=== PATIENT | female | born 1975 | race Caucasian/White ===

== ENCOUNTER → 2020-11-22 15:19 | Outpatient (BNVA) | payer BC, SELFPAY | PROVIDERS: PCP Family Medicine; Visit Provider Family Medicine | DX: Z01.419 Encounter for gynecological examination (general) (routine) without abnormal findings (principal); Z12.31 Encounter for screening mammogram for malignant neoplasm of breast; Z13.6 Encounter for screening for cardiovascular disorders; R53.83 Other fatigue | CPT/HCPCS: 88175 ==

== ENCOUNTER → 2021-06-10 08:37 | Outpatient (BNVA) | payer BC, SELFPAY | PROVIDERS: PCP Family Medicine; Visit Provider Family Medicine | DX: Z00.00 Encounter for general adult medical examination without abnormal findings (principal); Z13.6 Encounter for screening for cardiovascular disorders; F17.219 Nicotine dependence, cigarettes, with unspecified nicotine-induced disorders | CPT/HCPCS: 80053; 80061; 85025 ==

== ENCOUNTER 2024-06-22 10:36 | Emergency (ER) | payer OTHER, SELFPAY ==
[2024-06-22 10:46] VITALS: BP 101/71; PULSE 63; RESP 16; TEMP 36.2; O2SAT 100; BMI 21.2
--- NOTE | 2024-06-22 11:12 | XRR_ITS ---
PROCEDURE INFORMATION: Exam: XR Lumbosacral Spine Exam date and time: 06/22/2024 12:50 PM Age: 49 years old Clinical indication: Low back pain; Patient HX: Lower back pain post pulling incident today TECHNIQUE: Imaging protocol: Radiologic exam of the lumbosacral spine. Views: 2 or 3 views. COMPARISON: No relevant prior studies available. FINDINGS: Bones/joints: No acute fracture. Normal alignment. Vertebral body heights are maintained. There is disc space narrowing with moderate degenerative changes at L5-S1. Soft tissues: Unremarkable. XR/XR lumbar spine 2-3V* [id number] IMPRESSION: No acute findings.
--- NOTE | 2024-06-22 14:38 | W.ED.BACK ---
HPI - Back Pain/Injury General: Chief Complaint: Back Pain/Injury Stated Complaint: lower back pain Time Seen by Provider: 06/22/24 14:20 History of Present Illness: 49-year-old female comes in today for complaints of low back pain. On exam patient appears nontoxic. Patient appears in no acute distress. Patient reports that she was at work this morning and was moving some miguelina and felt a strain in her back. Patient had increasing pain and discomfort throughout the day. Patient believes that she needs to be off work tomorrow to recover. Patient denies any chronic medical problems. Patient reports only occasional back discomfort. Related Data Previous Rx's Medication Instructions Recorded sulfamethoxazole 800 1 tab PO BID 7 days #14 tabs 12/24/23 mg-trimethoprim 160 mg tablet (Bactrim DS) Allergies Allergy/AdvReac Type Severity Reaction Status Date / Time Penicillins Allergy hives Verified 12/24/23 14:07 Review of Systems General: Reports: 10 or more systems reviewed and unremarkable except in HPI and below Musc: Reports: back pain PFSH ED PFSH: Medical History No pertinent past medical history Surgical History H/O tubal ligation Family History Other Cancer Diabetes Social History Smoking and tobacco/nicotine status: unknown if used tobacco/nicotine Second hand smoke exposure: Yes Alcohol intake: never Substance/Drug Use: never Physical Exam Const: COMMON NORMALS: alert HENMT: COMMON NORMALS: normocephalic HEAD & SCALP: normocephalic Neck/C-Spine: COMMON NORMALS: full ROM Resp: COMMON NORMALS: normal respiratory effort Cardio: COMMON NORMALS: regular rate RATE: regular rate Back/Pelvis: LUMBAR SPINE/LOWER BACK: Yes lumbar spinal tenderness Lumbar spinal tenderness location: L5 and Yes paraspinal muscle tenderness Extremity: COMMON NORMALS: normal to inspection Neuro: SENSORIUM/ORIENTATION: Yes alert Skin: COMMON NORMALS: turgor normal GENERAL SKIN EXAM: turgor normal Course Vital Signs: Vital signs: Vital Signs Temperature 97.2 F L 06/22/24 10:46 Pulse Rate 63 06/22/24 10:46 Respiratory Rate 16 06/22/24 10:46 Blood Pressure 101/71 06/22/24 10:46 Pulse Oximetry 100 06/22/24 10:46 Oxygen Delivery Me thod Room Air 06/22/24 10:46 MDM - Back Pain/Injury Medical Decision Making Patient comes in today for complaints of low back pain. On exam patient appears nontoxic. Patient appears no acute distress. Respirations are even. Patient has muscle tenderness in the lower spine. Differential diagnosis muscle strain, intervertebral disc disease, facet arthritis. X-ray noted some intervertebral disc disease in the lower lumbar between L5 and S1. No acute abnormalities were noted. Reviewed exam with patient with recommendation for treatment and follow-up. Patient reported understanding. Labs Radiology Impressions Lumbar Spine X-Ray 06/22/24 11:12 IMPRESSION: No acute findings. All radiology interpretation(s) finalized by discharge Discharge Plan Discharge Patient Disposition: Home Clinical Impression: Strain of lumbar region Qualifiers: Encounter type: initial encounter Qualified Code(s): S39.012A - Strain of muscle, fascia and tendon of lower back, initial encounter Condition: Stable Prescriptions: No Action sulfamethoxazole-trimethoprim [Bactrim DS] 800-160 mg tablet 1 tab PO BID 7 Days Qty: 14 0RF Discharge Orders: Discharge ED (Routine); Ordered 06/22/24 Ordered By: Orion Mtz Referrals: Belkys Arriola DO [Primary Care Provider] - Discharge Diet: Usual diet Discharge Activity: Increase activity as tolerated Patient Instructions: Low Back Strain (ED) Activity Restrictions/Additional Instructions: Activity as tolerated. Increase activity as tolerated. Gentle stretching range of motion exercises. Continue with ibuprofen and Tylenol for pain. Use ice and heat for further pain relief. Follow-up with primary care in 1 week for recheck. 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
[2024-06-22 14:59] VITALS: BP 98/63; PULSE 67; O2SAT 99
== END 2024-06-22 15:00 | disposition home or self-care (01) ==
PROVIDERS: Emergency Provider Nurse Practitioner Family; PCP Family Medicine
DX: S39.012A Strain of muscle, fascia and tendon of lower back, initial encounter (principal); X58.XXXA Exposure to other specified factors, initial encounter
CPT/HCPCS: 72100; 99283

== ENCOUNTER 2024-07-13 10:54 | Emergency (ER) | payer OTHER, SELFPAY ==
[2024-07-13 11:27] VITALS: BP 96/64; PULSE 88; RESP 18; TEMP 36.7; O2SAT 95; BMI 21.2
[2024-07-13 12:13] LABS: Influenza A POSITIVE (Negative); Influenza B NEGATIVE (Negative); Respiratory Syncytial Virus Ce NEGATIVE (Negative); SARS-CoV-2 PCR NEGATIVE (Negative)
--- NOTE | 2024-07-13 12:56 | XRR_ITS ---
PROCEDURE INFORMATION: Exam: XR Chest Exam date and time: 07/13/2024 1:00 PM Age: 49 years old Clinical indication: Cough TECHNIQUE: Imaging protocol: Radiologic exam of the chest. Views: 1 view. COMPARISON: No relevant prior studies available. FINDINGS: Lungs: Bilateral apical fibrotic changes. There is no evidence of focal pulmonary consolidation. Pleural spaces: Unremarkable. No pleural effusion. No pneumothorax. Heart/Mediastinum: Unremarkable. No cardiomegaly. Bones/joints: Unremarkable. XR/XR chest 1V [id number] IMPRESSION: No acute cardiopulmonary process.
--- NOTE | 2024-07-13 13:36 | ED_ITS ---
HPI - URI/Sore Throat General: Chief Complaint: Upper Respiratory Infection Stated Complaint: headache, fever Time Seen by Provider: 07/13/24 12:44 History of Present Illness: Chief complaint is fever cough body aches nasal congestion. Patient states her whole body aches. She states she has achiness from her head to her toes. She states she has had a fever. Her symptoms started on . Started out with nasal congestion and drainage and then turned into cough. No shortness of breath. No abdominal pain. She had 1 episode of diarrhea that is not black or bloody. No vomiting. No chest pain other than soreness when she coughs and achiness all over. No history of heart disease. Denies history of COPD or asthma. She does smoke but has quit since she got sick. She states she is keeping fluid down. Related Data Home Medications ?Medication ?Instructions ?Recorded ?Confirmed ibuprofen 200 mg tablet 600 mg PO Q6H PRN Pain 07/1307/13/24 Previous Rx's ?Medication ?Instructions ?Recorded albuterol sulfate 90 mcg/actuation 2 inh inhalation Q4 H PRN shortness 07/13/24 aerosol inhaler (Ventolin HFA) of breath or wheezing # 6.7 grams benzonatate 100 mg capsule 100 mg PO TID PRN cough #20 caps 07/13/24 Allergies Allergy/AdvReac Type Severity Reaction Status Date / Time Penicillins Allergy hives Verified 12/24/23 14:07 [facility] ED PFS: Medical History No pertinent past medical history Surgical History H/O tubal ligation Family History Other Cancer Diabetes Social History Smoking and tobacco/nicotine status: unknown if used tobacco/nicotine Second hand smoke exposure: Yes Alcohol intake: never Substance/Drug Use: never Physical Exam Narrative: EXAM NARRATIVE: Patient is alert coughing frequently appears to not be feeling well. Lung sounds have some diminished breath sounds bilaterally and mild forced expiratory wheezing bilaterally. No retractions or accessory muscle use. No increased work of breathing. She speaking full sentences. Heart regular rhythm. Abdomen soft nontender no guarding or rebound. Extremities warm well-perfused. No calf tenderness or pitting edema. Neck is supple. She has moist mucous membranes. She has nasal congestion and drainage. Conjunctive is normal. Pupils equal and reactive to light full range ocular motion. She has no motor deficits on exam. No CVA tenderness. She is alert oriented and shows ability to reason. Speech is clear. No rash. Course Vital Signs: Vital signs: Vital Signs Temperature 98.1 F 07/13/24 11:27 Pulse Rate 88 07/13/24 11:27 Respiratory Rate 18 07/13/24 11:27 Blood Pressure 96/64 07/13/24 11:27 Pulse Oximetry 95 07/13/24 11:27 Oxygen Delivery Me thod Room Air 07/13/24 11:27 MDM - URI/Sore Throat Medical Decision Making Patient presents not feeling well with bodyaches fever cough nasal congestion and drainage. Exam and history most consistent with viral upper respiratory infection and acute bronchitis. I ordered chest x-ray to evaluate for pneumonia and COVID influenza A and influenza B testing. Influenza B and COVID are negative but influenza A is positive. Chest x-ray to my independent review of the images does not show focal infiltrate or acute process to my interpretation. Formal interpretation is pending. Patient outside the window of likely benefit from Tamiflu. She agrees with this. Will discharge home with symptomatic treatment including Tessalon Perles and albuterol MDI. I advised smoking cessation. I advised signs symptoms of worsening watch and return for adequate oral hydration. Patient agrees with plan after informed discussion. Lab Data Laboratory Results Coronavirus (PCR) Negative (Negative) 07/13/24 11:30 Influenza A (PCR) Positive (Negative) 07/13/24 11:30 Influenza Type B (PCR) Negative (Negative) 07/13/24 11:30 RSV (PCR) Negative (Negative) 07/13/24 11:30 XR interpretation done by ED provider, pending radiology final review (cxr) ED provider radiology interpretation(s): Chest x-ray negative for acute process to my interpretation Discharge Plan Discharge Patient Disposition: Home Clinical Impression: Influenza, Bronchitis Condition: Stable Prescriptions: New benzonatate 100 mg capsule 100 mg PO TID PRN (Reason: cough) Qty: 20 0RF albuterol sulfate [Ventolin HFA] 90 mcg/actuation HFA aerosol inhaler 2 inh inhalation Q4H PRN (Reason: shortness of breath or wheezing) Qty: 6.7 0RF No Action ibuprofen 200 mg Tablet 600 mg PO Q6H PRN (Reason: Pain) Discharge Orders: Discharge ED (Routine); Ordered 07/13/24 Ordered By: Mayo Gardner Referrals: Belkys Arriola DO [Primary Care Provider] - Activity Restrictions/Additional Instructions: Follow-up with your doctor this week for recheck. Come back if increased shortness of breath, weakness, getting worse instead of better. Come back if you start getting better and then have a return of fever and worsening of your condition. Make sure to drink plenty of fluid. Smoking cessation. 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
[2024-07-13 13:51] VITALS: BP 105/70; PULSE 87; O2SAT 92
--- NOTE | 2024-07-13 14:06 | W.ED.URI ---
HPI - URI/Sore Throat General: Chief Complaint: Upper Respiratory Infection Stated Complaint: headache, fever Time Seen by Provider: 07/13/24 12:44 History of Present Illness: duplicate chart created in error Related Data Home Medications ?Medication ?Instructions ?Recorded ?Confirmed ibuprofen 200 mg tablet 600 mg PO Q6H PRN Pain 07/13/24 07/13/24 Previous Rx's ?Medication ?Instructions ?Recorded albuterol sulfate 90 mcg/actuation 2 inh inhalation Q4H PRN shortness 07/13/24 aerosol inhaler (Ventolin HFA) of breath or wheezing #6.7 grams benzonatate 100 mg capsule 100 mg PO TID PRN cough #20 caps 07/13/24 Allergies Allergy/AdvReac Type Severity Reaction Status Date / Time Penicillins Allergy hives Verified 12/24/23 14:07 [facility] ED PFSH: Medical History No pertinent past medical history Surgical History H/O tubal ligation Family History Other Cancer Diabetes Social History Smoking and tobacco/nicotine status: unknown if used tobacco/nicotine Second hand smoke exposure: Yes Alcohol intake: never Substance/Drug Use: never Course Vital Signs: Vital signs: Vital Signs Temperature 98.1 F 07/13/24 11:27 Pulse Rate 87 07/13/24 13:51 Respiratory Rate 18 07/13/24 11:27 Blood Pressure 105/70 07/13/24 13:51 Pulse Oximetry 92 07/13/24 13:51 Oxygen Delivery Me thod Room Air 07/13/24 11:27 MDM - URI/Sore Throat Medical Decision Making duplicate chart created in error Lab Data Radiology Impressions Chest X-Ray 07/13/24 12:56 IMPRESSION: No acute cardiopulmonary process. Laboratory Results Coronavirus (PCR) Negative (Negative) 07/13/24 11:30 Influenza A (PCR) Positive (Negative) 07/13/24 11:30 Influenza Type B (PCR) Negative (Negative) 07/13/24 11:30 RSV (PCR) Negative (Negative) 07/13/24 11:30 All radiology interpretation(s) finalized by discharge Discharge Plan Discharge Patient Disposition: Home Clinical Impression: Influenza, Bronchitis Condition: Stable Prescriptions: New albuterol sulfate [Ventolin HFA] 90 mcg/actuation HFA aerosol inhaler 2 inh inhalation Q4H PRN (Reason: shortness of breath or wheezing) Qty: 6.7 0RF benzonatate 100 mg capsule 100 mg PO TID PRN (Reason: cough) Qty: 20 0RF No Action ibuprofen 200 mg Tablet 600 mg PO Q6H PRN (Reason: Pain) Discharge Orders: Discharge ED (Routine); Ordered 07/13/24 Ordered By: Mayo Gardner Referrals: Belkys Arriola DO [Primary Care Provider] - Activity Restrictions/Additional Instructions: Follow-up with your doctor this week for recheck. Come back if increased shortness of breath, weakness, getting worse instead of better. Come back if you start getting better and then have a return of fever and worsening of your condition. Make sure to drink plenty of fluid. Smoking cessation. 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
== END 2024-07-13 13:53 | disposition home or self-care (01) ==
PROVIDERS: Student in an Organized Health Care Education/Training Program; Emergency Provider Emergency Medicine; PCP Family Medicine
DX: J10.1 Influenza due to other identified influenza virus with other respiratory manifestations (principal); Z11.52 Encounter for screening for COVID-19; J40 Bronchitis, not specified as acute or chronic
CPT/HCPCS: 12345; 71045; 87637; 99283

== ENCOUNTER 2024-08-15 06:00 | Outpatient (CLI) | payer OTHER, SELFPAY | END 2024-08-15 09:00 | disposition home or self-care (01) | LOC: LAB 08-20 06:33 | PROVIDERS: PCP Family Medicine; Visit Provider Family Medicine | DX: Z13.6 Encounter for screening for cardiovascular disorders (principal) | CPT/HCPCS: 80053; 80061; 82306; 84443; 85025 ==

== ENCOUNTER → 2024-08-20 16:09 | Outpatient (BNVA) | payer OTHER, SELFPAY | PROVIDERS: PCP Family Medicine; Visit Provider Family Medicine | DX: E83.52 Hypercalcemia (principal) | CPT/HCPCS: 82310; 83970 ==

== ENCOUNTER 2024-08-28 11:26 | Outpatient (CLI) | payer OTHER, SELFPAY ==
--- NOTE | 2024-08-28 11:40 | MM_ITS ---
WS: [id number] BILATERAL SCREENING DIGITAL TOMOSYNTHESIS MAMMOGRAM WITH CAD HISTORY: screening COMPARISON: None available. Bilateral CC and MLO views with tomosynthesis and synthetic mammography submitted. Computer aided detection analyzed. Breast composition: There are scattered areas of fibroglandular density. No suspicious masses, microcalcifications or architectural distortion. MM/MM scr BI tomosynthesis [id number] IMPRESSION: BI-RADS: 1 - Negative. FOLLOW UP: 1 Year Follow-up
== END 2024-08-28 11:27 | disposition home or self-care (01) ==
PROVIDERS: PCP Family Medicine; Visit Provider Family Medicine
DX: Z12.31 Encounter for screening mammogram for malignant neoplasm of breast (principal); R92.323 Mammographic fibroglandular density, bilateral breasts
CPT/HCPCS: 77063; 77067

== ENCOUNTER 2025-02-24 14:22 | Outpatient (CLI) | payer OTHER, SELFPAY ==
--- NOTE | 2025-02-24 14:32 | XRR_ITS ---
PROCEDURE INFORMATION: Exam: XR Chest Exam date and time: 02/24/2025 2:41 PM Age: 49 years old Clinical indication: Cough and wheezing; Recent bouts of pneumonia and chest colds, coughing x 4 weeks; Additional info: Persistent cough / wheezing TECHNIQUE: Imaging protocol: Radiologic exam of the chest. Views: 2 views. COMPARISON: CR XR chest 1V [id number] 07/13/2024 1:00 PM FINDINGS: Lungs: There is some vague ground-glass opacity in the superomedial infrahilar region of the right lung. On the lateral projection this appears to be localized within the middle lobe. The left lung is clear. Pleural spaces: Unremarkable. No pleural effusion. No pneumothorax. Heart/Mediastinum: Unremarkable. No cardiomegaly. Bones/joints: Unremarkable. XR/XR chest 2V* [id number] IMPRESSION: Superomedial subtle right middle lobe pneumonia. Follow-up two-view radiograph of the chest is recommended to resolution.
== END 2025-02-24 14:23 | disposition home or self-care (01) ==
PROVIDERS: PCP Family Medicine; Visit Provider Family Medicine
DX: R06.2 Wheezing (principal); J18.1 Lobar pneumonia, unspecified organism
CPT/HCPCS: 71046